=== PATIENT | male | born 1980 | race Caucasian/White ===

== ENCOUNTER 2017-10-18 12:42 | Emergency (ER) | payer MEDICAID ==
[~2017-10-18] VITALS: Ht 172.7 cm; Wt 82.7 kg
[2017-10-18] MEDS ORDERED: DiphenhydrAMINE HCL 25 MG CAPSULE PO ONE (15:45)
[2017-10-18 15:56] VITALS: BP 132/79
== END 2017-10-18 15:58 | disposition home or self-care (01) ==
LOC: EMS 12:43
DX: L74.0 Miliaria rubra (principal); F17.210 Nicotine dependence, cigarettes, uncomplicated
CPT/HCPCS: 99283